=== PATIENT | male | born 1995 | race Caucasian/White ===

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

== ENCOUNTER 2019-06-27 21:03 | Emergency (ER) | payer SELFPAY ==
[~2019-06-27] VITALS: Ht 180.3 cm; Wt 88.9 kg
[2019-06-27 21:10] VITALS: BP 125/80
--- NOTE | 2019-06-27 21:13 | NUR ---
TO LOBBY A/W BED AMBULATORY
--- NOTE | 2019-06-27 21:37 | NUR ---
PT AMBULATED TO BED 11
--- NOTE | 2019-06-27 21:45 | NUR ---
24 Y/O MALE PRESENTS TO ED, C/O CHEST PAIN 01/27. PT STATES PAIN IS ONGOING FOR PAST 3 DAYS, RADIATES TO LEFT ARM WITH TINGLING SENSATION. DENIES ANY CARDIAC HX. STATES HAVING HX OF ANXIETY, TAKES ZOLOFT. NO MEDICATIONS TAKEN FOR PAIN PRIOR COMING TO ED. PT DENIES N/V/D. ABLE TO AMBULATE WITH STEADY GAIT. PT PLACED ON MONITOR. ERMD AWARE. WILL CONTINUE TO MONITOR.
[2019-06-27] MEDS ORDERED: LORazepam 2 MG/ML VIAL IM ONE (22:15)
--- NOTE | 2019-06-27 22:37 | NUR ---
XRAY AT BEDSIDE
[2019-06-27 23:26] VITALS: BP 123/71
--- NOTE | 2019-06-27 23:26 | NUR ---
PT DISCHARGED WITH PAPERWORK. EDUCATED PT REGARDING MEDICATIONS AND D/C INSTRUCTIONS. PT VERBALIZED UNDERSTANDING OF TEACHING. TOLD PT TO FOLLOW UP WITH PCP AND WHEN TO RETURN TO ED. PT STABLE CONDITION. ALL QUESTIONS ANSWERED.
== END 2019-06-27 23:26 | disposition home or self-care (01) ==
LOC: MED 21:03
DX: R06.00 Dyspnea, unspecified (principal); R20.0 Anesthesia of skin; F41.9 Anxiety disorder, unspecified
CPT/HCPCS: 71045; 93005; 96372; 99283; J2060; Q0092